=== PATIENT | female | born 1980 | race African-American/Black ===

== ENCOUNTER 2019-09-11 06:10 | Inpatient (IN) | payer BC, OTHER ==
[2019-09-11] MEDS ORDERED: ELECTROLYTE-148 SOLN 1,000 ML IV SCH ×2 (07:30)
[2019-09-11] MEDS ORDERED: CITRIC ACID/SODIUM CITRATE 30 ML UNIT-DOSE CUP PO ONE (07:30)
--- NOTE | 2019-09-11 07:43 | HP ---
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: No: Alzheimer's, CVA, Dementia, Migraine, Multiple Sclerosis, Peripheral Neuropathy, Parkinson's, Seizure, Syncope, TIA, Vertigo, Other Cardiovascular: No: AFIB, Aneurysm, Aortic Insufficiency, Aortic Stenosis, CAD, CHF, Deep Vein Thrombosis, HTN, Hyperlipdemia, NM, Mitral Insufficiency, Mitral Stenosis, Murmur, Pulmonary Hypertension, Other Pulmonary: No: Asthma, Bronchitis, Cancer, COPD, O2 Dependent, Pneumonia, Previously Intubated, Pulmonary Embolus, Pulmonary Fibrosis, Sleep Apnea, Other Gastrointestinal: No: Ascites, Cancer, Constipation, Crohn's Disease, Diverticulitis, Diverticulosis, Esophageal Varices, Gastritis, GERD, GI Bleed, Hemorrhoids, Hiatal Hernia, Inflamatory Bowel Disease, Irritable Bowel Disease, Pancreatitis, Peptic Ulcer Disease, Ulcerative Colitis, Other Hepatobiliary: No: Cirrhosis, Cholelithiasis, Cholecystitis, Choledocholithiasis , Hepatitis A, Hepatitis B, Hepatitis C, Other Renal/: No: Renal Failure, Renal Inusuff, BPH, Cancer, Hematuria, Hemodialysis , Neurogenic Bladder, Renal Calculi, UTI, Other Reproductive: No: Ectopic , Endometriosis, Fibroids, PID, Polycystic Ovary Syndrome, Postmenopausal, Other ...Para: 2 ...Term: 2 ... Weeks Gestation by Dates: 38 Heme/Onc: No: Anemia, B12 Deficiency, Bleeding Disorder, Cancer, Current Chemotherapy, Current Radiation Therapy, Hemochromatosis, Hypercoaguable State, Myeloproliferative Synd, Sickle Cell Disease, Sickle Cell Trait, Thrombocytopenia, Other Infectious Disease: No: AIDS, C-Diff, Herpes Zoster, HIV, MRSA, STD's, Tuberculosis, VREF, Other Psych: No: Addictions, Anxiety, Bipolar, Depression, Panic, Psychosis, Schizophrenia, Other Musculoskeletal: No: Bursitis, Chronic low back pain, Hemiparesis, Hemiplegia, Osteoarthritis, Paraplegia, Other Rheumatology: No: Fibromyalgia, Gout, Lupus, Rheumatoid Arthritis, Sarcoidosis, Vasculitis, Other ENT: No: Allergic Rhinitis, Sinusitis, Other Endocrine: No: [place]'s Disease, Evi's Disease, Diabetes Insipidus, Diabetes Mellitus, Hyperparathyroidism, Hyperthyroidism, Hypothyroidism, Osteopenia, SIADH, Other Dermatology: No: Basal Cell, Cellulitis, Eczema, Melanoma, Psoriasis, Squamous Cell, Other - Past Surgical History Past Surgical History: No: None, AAA Repair, AICD, Amputation, Appendectomy, Arthrosocopy, AV Fistula/Graft, Bariatric Surgery, Breast Biopsy, Bypass, CABG, Carotid Endarterectomy, Cataract Removal, Cholecystectomy, Colectomy, Colonoscopy, Colostomy, Craniotomy, , Cystectomy, Hernia Repair, Hysterectomy, Ileal Conduit, Ileosotomy, Joint Replacement, Kidney Transplant, Laminectomy, Liver Transplant, Mastectomy, Nephrectomy, Oopherectomy, Orchiectomy, Permanent Pacemaker, Prostatectomy, Splenectomy, Stent, Thoracotomy , TURP, Tonsillectomy, Tubal Ligation, Upper Endoscopy, Valve Replacement, Vasectomy, Vein Stripping/Ligation Hx Myomectomy: No Hx Transabdominal Cerclage: No - Advance Directives Advance Directives: Yes: Living Will - Smoking History Smoking history: Never smoked Have you smoked in the past 12 months: No - Alcohol/Substance Use Hx Alcohol Use: No History of Substance Use: reports: None - Social History Usual Living Arrangement: Yes: With Spouse Do you think of yourself as: Straight/Heterosexual ADL: Independent History of Recent Travel: No Home Medications - Allergies Allergies/Adverse Reactions: Allergies Allergy/AdvReac Type Severity Reaction Status Date / Time No Known Allergies Allergy Verified 09/11/19 07:28 - Home Medications Home Medications: Ambulatory Orders Ferrous Sulfate 1 tab PO DAILY 09/11/19 Tablet 1 tab PO DAILY 09/11/19 Family Medical History Family History: Denies Review of Systems - Review of Systems Constitutional: reports: No Symptoms Eyes: reports: No Symptoms HENT: reports: No Symptoms Neck: reports: No Symptoms Cardiovascular: reports: No Symptoms Respiratory: reports: No Symptoms Gastrointestinal: reports: No Symptoms Genitourinary: reports: No Symptoms Breasts: reports: No Symptoms Reported Musculoskeletal: reports: No Symptoms Integumentary: reports: No Symptoms Neurological: reports: No Symptoms Endocrine: reports: No Symptoms Hematology/Lymphatic: reports: No Symptoms Psychiatric: reports: No Symptoms 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 - Maternity Constitutional: Yes: Well Nourished, No Distress, Calm Eyes: Yes: WNL, Conjunctiva Clear, EOM Intact HENT: Yes: WNL, Atraumatic, Normocephalic Neck: Yes: WNL, Supple, Trachea Midline Cardiovascular: Yes: WNL, Regular Rate and Rhythm Lungs: Clear to auscultation Breast(s): Yes: WNL - Abdominal Exam/OB Fundal Height: 40 Number of Fetuses: Single Presentation: Vertex Contractions: Yes Regularity: Irregular Intensity: Mild Monitor Mode: External Heart Rate Location: [facility] Category: I Accelerations: Uniform Decelerations: None - Vaginal Exam/OB Vaginal Bleediing: No Speculum Exam: No Dilatation (cm): 1 Effacement (%): 20 Amniotic Membrane Status: Intact Meconium: Light Presentation: Vertex/Position Station: -3 - 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 Musculoskeletal: Yes: WNL Extremities: Yes: WNL Edema: Yes Edema: LUE: 1+, RUE: 1+, LLE: 1+, RLE: 1+ Integumentary: Yes: WNL Deep Tendon Reflex Grade: Normal +2 ...Motor Strength: WNL Psychiatric: Yes: WNL, Alert, Oriented Hemorrhage Risk Assessment - Risk Factors Medium Risk Factors: Yes: Prior , uterine surgery,or multiple laparotomies Risk Score: 1 Risk Level: Medium Risk Assessment/Plan for c s , btl
[2019-09-11 07:50] VITALS: BMI 41.2
[2019-09-11] MEDS ORDERED: OXYTOCIN 20 UNITS in 0.9% NS 40 UNIT/2,000 ML INFUS.BAG IV ONE (07:50)
[2019-09-11] MEDS ORDERED: ceFAZolin SODIUM 1 GM VIAL ONE (07:53)
[2019-09-11] MEDS ORDERED: PHENYLEPHRINE HCL 10 MG/1 ML SINGLE DOSE VIAL ONE (07:53)
[2019-09-11] MEDS ORDERED: morphine SULFATE/PF 0.5 MG/ML (2cc Syringe - QUVA) ONE (07:54)
[2019-09-11] MEDS ORDERED: OXYTOCIN 10 UNITS/ML VIAL ONE (08:52)
[2019-09-11] MEDS ORDERED: DEXAMETHASONE SOD PHOSPHATE 4 MG/1 ML VIAL ONE (08:52)
[2019-09-11] MEDS ORDERED: ONDANSETRON 4 MG/2 ML VIAL IVPUSH PRN (09:40)
[2019-09-11] MEDS ORDERED: ACETAMINOPHEN 1000 MG/100 ML VIAL (NON FORMULARY) IVPB PRN (09:41)
[2019-09-11] MEDS ORDERED: IBUPROFEN 800 MG/8 ML IJ IVPB PRN ×2 (09:41→11:02)
[2019-09-11] MEDS ORDERED: METHYLERGONOVINE MALEATE 0.2 MG/1 ML AMP IM PRN (11:02)
[2019-09-11] MEDS ORDERED: oxyCODONE HCL 5 MG TABLET PO PRN (11:02)
--- NOTE | 2019-09-11 11:12 | OP ---
Operative Note - Note: Operative Date: 09/11/19 Pre-Operative Diagnosis: repeat c s , btl Operation: repeat lt c s , btl Findings: no adhesion Post-Operative Diagnosis: Same as Pre-op Surgeon: Yonas Rodriguez Radial Drill Press Operator: Shmuel Richards Anesthesiologist/TEA TREE FARM WORKER: Naima Benton Anesthesia: Spinal Estimated Blood Loss (mls): 400 (no complications ) Operative Report Dictated: Yes
[2019-09-11] MEDS ORDERED: OXYTOCIN 20 UNITS in 0.9% NS 20 UNIT/1,000 ML INFUS.BAG IV SCH (11:15)
[2019-09-11] MEDS ORDERED: SENNOSIDES/DOCUSATE COMBO (SENNA PLUS) TABLET (UD) PO PRN (22:00)
--- NOTE | 2019-09-12 08:27 | PN ---
Progress Note (short form) - Note Progress Note: Anesthesia POD#1 S/P Repeat under spinal and Duramorph VSS,no N/V,pain is under control,legs fully recovered. No complications to anesthesia seen. Naima Benton MD.
[2019-09-12 09:29] LABS: BASO % 0.3 % (0-2.0); EOS % 0.4 % (0-4.5); HEMATOCRIT 29.9 % (32.4-45.2); LYMPH % 14.9 % (8-40); MCH 29.3 pg (25.7-33.7); MCHC 33.3 g/dl (32.0-36.0); MEAN CELL VOLUME 88.1 fl (80-96); MEAN PLT VOLUME 9.6 fl (7.5-11.1); MONO % 6.3 % (3.8-10.2); NEUT % 78.1 % (42.8-82.8); PLATELET COUNT 307 K/MM3 (134-434); RDW 13.5 % (11.6-15.6); WHITE BLOOD COUNT 15.3 K/mm3 (4.0-10.0)
[2019-09-12] MEDS: ENOXAPARIN NA (PORCINE) 40 MG/0.4 ML DISP.SYRIN SQ SCH (10:14)
[2019-09-12] MEDS ORDERED: BISACODYL 10 MG SUPP.RECT RC PRN (11:02)
--- NOTE | 2019-09-12 14:55 | PN ---
Post Progress Note Post Day: 1 Type of Delivery: Repeat C/S Vital Signs: Vital Signs Temperature 97.5 F L 09/12/19 14:31 Pulse Rate 68 09/12/19 14:31 Respiratory Rate 22 H 09/12/19 14:31 Blood Pressure 117/57 L 09/12/19 14:31 O2 Sat by Pulse Oximetry (%) 97 09/11/19 10:41 Breast Exam: Yes: Soft Uterus: Yes: Fundus Firm Incision: Yes: Dressing dry and intact, Sutures intact Abdomen/GI: Yes: Abdomen soft, Passing flatus, Tolerating PO Lochia: Yes: Serosa Lochia, amount: Small Extremities: Yes: Calves non-tender Perineum: Yes: Intact Activity: Ambulating - Labs Labs: CBC WBC 15.3 K/mm3 (4.0-10.0) H 09/12/19 08:25 RBC 3.40 M/mm3 (3.60-5.2) L 09/12/19 08:25 Hgb 10.0 GM/dL (10.7-15.3) L 09/12/19 08:25 Hct 29.9 % (32.4-45.2) L 09/12/19 08:25 MCV 88.1 fl (80-96) 09/12/19 08:25 MCH 29.3 pg (25.7-33.7) 09/12/19 08:25 MCHC 33.3 g/dl (32.0-36.0) 09/12/19 08:25 RDW 13.5 % (11.6-15.6) 09/12/19 08:25 Plt Count 307 K/MM3 (134-434) 09/12/19 08:25 MPV 9.6 fl (7.5-11.1) 09/12/19 08:25 Absolute Neuts (auto) 11.9 K/mm3 (1.5-8.0) H 09/12/19 08:25 Neutrophils % 78.1 % (42.8-82.8) 09/12/19 08:25 Lymphocytes % 14.9 % (8-40) D 09/12/19 08:25 Monocytes % 6.3 % (3.8-10.2) 09/12/19 08:25 Eosinophils % 0.4 % (0-4.5) D 09/12/19 08:25 Basophils % 0.3 % (0-2.0) 09/12/19 08:25 Nucleated RBC % 0 % (0-0) 09/12/19 08:25 Assessment/Plan oob as much as possible
[2019-09-12] MEDS: oxyCODONE HCL 5 MG TABLET PO PRN (17:08)
[2019-09-12] MEDS: ACETAMINOPHEN 325 MG TABLET (FP) PO PRN (17:10)
[2019-09-12] MEDS: SIMETHICONE 80 MG TAB.CHEW (FP) PO PRN (17:11)
--- NOTE | 2019-09-12 18:58 | OP ---
DATE OF OPERATION: 09/11/2019 PREOPERATIVE DIAGNOSIS: Repeat low transverse section and bilateral tubal ligation. POSTOPERATIVE DIAGNOSIS: Repeat low transverse section and bilateral tubal ligation. PROCEDURE: Repeat low transverse section and bilateral tubal ligation. SURGEON: Yonas Rodriguez MD ELECTROLYSIS INVESTIGATOR: NNAMDI Hannon, because no other executive assistant to general counsel doctors were available. ANESTHESIOLOGIST: Naima Benton MD ANESTHESIA: Spinal. BLOOD LOSS: About 400 mL. SPECIMEN: Placenta to Pathology. INDICATIONS: This is a 38-year-old female patient, previous 2 low transverse sections. All of the risks and benefits, alternatives were explained to the patient including future , ectopic, nonreversible, and all other alternatives were explained. The patient understood. The patient understood there is a 99.9% effective rate. Risks of future ectopic were also explained. Patient declined all other methods of family planning and requested bilateral tubal ligation. At this time, the patient was in mild labor with previous 2 low transverse sections, so was taken to the OR for repeat low transverse section; however, there was no executive assistant to general counsel available, so NNAMDI Hannon, was called in for repeat low transverse section. DESCRIPTION OF PROCEDURE: Patient was placed on the operating table in the supine position. After the spinal anesthesia was obtained, the patient's abdomen and pelvis was prepped and draped in the usual sterile manner. A Pfannenstiel incision was made through the skin and subcutaneous tissue until the fascia. The fascia was nicked in the midline and the fascial incision was extended bilaterally. Intraperitoneal cavity was entered. Bladder flap was not created. Low transverse segment of uterus was entered. Baby was delivered from LOP position. The baby was handed over to the refiner operator after umbilical cord was doubly clamped and cut. Cord blood gas was obtained. Placenta was removed. Uterus was closed in a single layer, first with interlocking Vicryl sutures with good hemostasis. Both ovaries and fallopian tubes and uterus were within normal limits except for polycystic ovary to both ovaries. Both isthmus of fallopian tubes were grasped with [place] and doubly transected and suture ligated. Both ends were coagulated with Bovie. Good hemostasis. No complications. Patient tolerated the procedure well. Blood loss was about 400 mL. Draining clear urine. Peritoneum was closed. Fascia was closed. Skin was closed. No complications besides the patient's BMI of 41.2. There was a lot of pedunculated abdominal muscle and fatty tissue, which was less tough during the surgery as it was a little bit more difficult getting into the intraabdominal cavity. Other than that, no complications. Patient tolerated the procedure well. Draining clear urine and transferred to the recovery room in stable condition. MD JUAN AMARO/[id number]
[2019-09-13] MEDS: oxyCODONE HCL 5 MG TABLET PO PRN ×3 (01:00→21:07)
[2019-09-13] MEDS: ACETAMINOPHEN 325 MG TABLET (FP) PO PRN ×3 (01:00→14:22)
[2019-09-13] MEDS: SIMETHICONE 80 MG TAB.CHEW (FP) PO PRN ×3 (07:57→21:08)
[2019-09-13] MEDS: ENOXAPARIN NA (PORCINE) 40 MG/0.4 ML DISP.SYRIN SQ SCH (10:11)
[2019-09-13] MEDS: IBUPROFEN 600 MG TABLET (FP) PO PRN ×2 (14:21→21:07)
--- NOTE | 2019-09-13 17:33 | PN ---
Post Progress Note Post Day: 2 Type of Delivery: Repeat C/S Vital Signs: Vital Signs Temperature 97.5 F L 09/13/19 09:00 Pulse Rate 67 09/13/19 09:00 Respiratory Rate 20 09/13/19 09:00 Blood Pressure 123/55 L 09/13/19 09:00 O2 Sat by Pulse Oximetry (%) 97 09/11/19 10:41 Breast Exam: Yes: Soft Uterus: Yes: Fundus Firm, Fundus below umbilicus Incision: Yes: Dressing dry and intact, Sutures intact Abdomen/GI: Yes: Abdomen soft, Passing flatus, Tolerating PO Lochia: Yes: Serosa Lochia, amount: Small Extremities: Yes: Calves non-tender Perineum: Yes: Intact Activity: Ambulating (doing well, will d c pt home for tomorrow ) - Labs Labs: CBC WBC 15.3 K/mm3 (4.0-10.0) H 09/12/19 08:25 RBC 3.40 M/mm3 (3.60-5.2) L 09/12/19 08:25 Hgb 10.0 GM/dL (10.7-15.3) L 09/12/19 08:25 Hct 29.9 % (32.4-45.2) L 09/12/19 08:25 MCV 88.1 fl (80-96) 09/12/19 08:25 MCH 29.3 pg (25.7-33.7) 09/12/19 08:25 MCHC 33.3 g/dl (32.0-36.0) 09/12/19 08:25 RDW 13.5 % (11.6-15.6) 09/12/19 08:25 Plt Count 307 K/MM3 (134-434) 09/12/19 08:25 MPV 9.6 fl (7.5-11.1) 09/12/19 08:25 Absolute Neuts (auto) 11.9 K/mm3 (1.5-8.0) H 09/12/19 08:25 Neutrophils % 78.1 % (42.8-82.8) 09/12/19 08:25 Lymphocytes % 14.9 % (8-40) D 09/12/19 08:25 Monocytes % 6.3 % (3.8-10.2) 09/12/19 08:25 Eosinophils % 0.4 % (0-4.5) D 09/12/19 08:25 Basophils % 0.3 % (0-2.0) 09/12/19 08:25 Nucleated RBC % 0 % (0-0) 09/12/19 08:25
--- NOTE | 2019-09-13 17:39 | DS ---
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-SUPER[employer] Vital Signs: Vital Signs Temperature 97.5 F L 09/13/19 09:00 Pulse Rate 67 09/13/19 09:00 Respiratory Rate 20 09/13/19 09:00 Blood Pressure 123/55 L 09/13/19 09:00 O2 Sat by Pulse Oximetry (%) 97 09/11/19 10:41 Constitutional: Yes: Well Nourished, No Distress, Calm Eyes: Yes: WNL, Conjunctiva Clear, EOM Intact HENT: Yes: WNL, Atraumatic, Normocephalic Neck: Yes: WNL, Supple, Trachea Midline Cardiovascular: Yes: WNL, Regular Rate and Rhythm Respiratory: Yes: WNL, Regular, CTA Bilaterally Gastrointestinal: Yes: WNL, Normal Bowel Sounds, Soft ...Rectal Exam: Yes: WNL Renal/: Yes: WNL Pelvis: Yes: WNL External Genitalia: Yes: Normal Internal Exam Deferred: No Vaginal Exam: Yes: Normal Cervix: Yes: Normal Uterus: Yes: Normal ....Post : Yes: Uterus firm, Uterus non-tender Breast(s): Yes: WNL Musculoskeletal: Yes: WNL Extremities: Yes: WNL Edema: Yes Edema: LUE: 1+, RUE: 1+, LLE: 1+, RLE: 1+ Integumentary: Yes: WNL Wound/Incision: Yes: Clean/Dry, Well Approximated Neurological: Yes: WNL, Alert, Oriented ...Motor Strength: WNL Psychiatric: Yes: WNL, Alert, Oriented Labs: CBC, BMP 09/12/19 08:25 Delivery - Delivery Section: Repeat Type of Anesthesia: Spinal EBL (cc): 400 Delivery, Single - Stages of Labor Date of Delivery: 09/11/19 Time of Delivery: 08:57 Time Placenta Delivered: 08:59 - Condition of Refrigeration Lead/Retail Manager Present: Yes Name: Caro Elias Gender: Male Weight: 3.289 kg Total Hours ROM (Hrs/Mins): 4 minutes - 1 Minute Total Score: 9 5 Minutes Total Score: 9 - [place] Feeding Plan Initial Plan: Exclusive throughout hospitalization Discharge Summary Problems reviewed: Yes Reason For Visit: Procedures: Principal: repeat c s btl, Other Procedures: btl Hospital Course: un eventful Health Concerns: none Plan of Treatment: oob as soon as possible Goals: return to work in 8 weeks Condition: Good - Instructions Diet, Activity, Other Instructions: regular , Physical activity Resume your normal everyday activity as tolerated no heavy lifting or exercise until seen by your surgeon. You may walk unlimited zabrina of and climb stairs. You may resume driving the car when you feel safe and comfortable behind the wheel. No sexual activity as instructed. Wound care If you have a bandage, leave it on, and keep dry for 48-72 hours. After that time discard the outer bandage. If they are tapes on the skin under the out of bandage leave them in place. They will peel off in the next 7 to 10 days. Do Not Peel them off. You may shower the day after surgery. If there are tapes present on the skin, you may shower over them. Diet There are no dietary restrictions. Eat healthy, high-fiber foods. Drink 6 to 8 glasses of liquid each day. This will assist in keeping your bowels are regular. Pain management You may take Tylenol or acetaminophen or Ibuprofen (for example, Motrin, Advil etc.) from my pain prescription medication is ordered should be taken as prescribed for moderate to severe pain. Call MD for any of the following: Severe pain not relieved by medication Fever of 101 or higher Excessive bleeding or drainage on dressing Inability to urinate Disposition: HOME - Home Medications Comprehensive Discharge Medication List: Ambulatory Orders Ferrous Sulfate 1 tab PO DAILY 09/11/19 Tablet 1 tab PO DAILY 09/11/19 Physical activity Resume your normal everyday activity as tolerated no heavy lifting or exercise until seen by your surgeon. You may walk unlimited zabrina of and climb stairs. You may resume driving the car when you feel safe and comfortable behind the wheel. No sexual activity as instructed. Wound care If you have a bandage, leave it on, and keep dry for 48-72 hours. After that time discard the outer bandage. If they are tapes on the skin under the out of bandage leave them in place. They will peel off in the next 7 to 10 days. Do Not Peel them off. You may shower the day after surgery. If there are tapes present on the skin, you may shower over them. Diet There are no dietary restrictions. Eat healthy, high-fiber foods. Drink 6 to 8 glasses of liquid each day. This will assist in keeping your bowels are regular. Pain management You may take Tylenol or acetaminophen or Ibuprofen (for example, Motrin, Advil etc.) from my pain prescription medication is ordered should be taken as prescribed for moderate to severe pain. Call MD for any of the following: Severe pain not relieved by medication Fever of 101 or higher Excessive bleeding or drainage on dressing Inability to urinate Prescription Drug Monitoring Program (I-STOP) results: I-STOP reviewed and no issues identified
[2019-09-14 07:49] LABS: BASO % 0.7 % (0-2.0); HEMATOCRIT 29.4 % (32.4-45.2); HEMOGLOBIN 9.6 GM/dL (10.7-15.3); LYMPH % 22.8 % (8-40); MCH 29.3 pg (25.7-33.7); MCHC 32.7 g/dl (32.0-36.0); MEAN CELL VOLUME 89.5 fl (80-96); MEAN PLT VOLUME 9.9 fl (7.5-11.1); MONO % 6.6 % (3.8-10.2); NEUT % 64.9 % (42.8-82.8); PLATELET COUNT 281 K/MM3 (134-434); RBC 3.29 M/mm3 (3.60-5.2); RDW 13.4 % (11.6-15.6); WHITE BLOOD COUNT 8.8 K/mm3 (4.0-10.0)
[2019-09-14] MEDS: IBUPROFEN 600 MG TABLET (FP) PO PRN (08:49)
[2019-09-14] MEDS: SIMETHICONE 80 MG TAB.CHEW (FP) PO PRN (08:49)
[2019-09-14] MEDS: ACETAMINOPHEN 325 MG TABLET (FP) PO PRN (08:50)
--- NOTE | 2019-09-14 10:01 | PN ---
Post Progress Note Post Day: 3 Type of Delivery: Repeat C/S Vital Signs: Vital Signs Temperature 97.6 F 09/13/19 21:30 Pulse Rate 77 09/13/19 21:30 Respiratory Rate 20 09/13/19 21:30 Blood Pressure 115/62 09/13/19 21:30 O2 Sat by Pulse Oximetry (%) 97 09/11/19 10:41 Breast Exam: Yes: Soft Uterus: Yes: Fundus Firm, Fundus below umbilicus Incision: Yes: Sutures intact Abdomen/GI: Yes: Abdomen soft, Passing flatus, Tolerating PO Lochia: Yes: Serosa Lochia, amount: Small Extremities: Yes: Calves non-tender Perineum: Yes: Intact Activity: Ambulating (dc pt home today ) - Labs Labs: CBC WBC 8.8 K/mm3 (4.0-10.0) 09/14/19 07:23 RBC 3.29 M/mm3 (3.60-5.2) L 09/14/19 07:23 Hgb 9.6 GM/dL (10.7-15.3) L 09/14/19 07:23 Hct 29.4 % (32.4-45.2) L 09/14/19 07:23 MCV 89.5 fl (80-96) 09/14/19 07:23 MCH 29.3 pg (25.7-33.7) 09/14/19 07:23 MCHC 32.7 g/dl (32.0-36.0) 09/14/19 07:23 RDW 13.4 % (11.6-15.6) 09/14/19 07:23 Plt Count 281 K/MM3 (134-434) 09/14/19 07:23 MPV 9.9 fl (7.5-11.1) 09/14/19 07:23 Absolute Neuts (auto) 5.7 K/mm3 (1.5-8.0) 09/14/19 07:23 Neutrophils % 64.9 % (42.8-82.8) 09/14/19 07:23 Lymphocytes % 22.8 % (8-40) D 09/14/19 07:23 Monocytes % 6.6 % (3.8-10.2) 09/14/19 07:23 Eosinophils % 5.0 % (0-4.5) H D 09/14/19 07:23 Basophils % 0.7 % (0-2.0) 09/14/19 07:23 Nucleated RBC % 0 % (0-0) 09/14/19 07:23
[2019-09-14] MEDS: ENOXAPARIN NA (PORCINE) 40 MG/0.4 ML DISP.SYRIN SQ SCH (10:35)
[2019-09-14 11:34] LABS: PLATELET ESTIMATE ADEQUATE
[2019-09-14 12:40] VITALS: BP 126/62; PULSE 73; TEMP 98.5
== END 2019-09-14 11:40 | disposition home or self-care (01) | DRG 785 ==
LOC: JLDR 06:10 → J3W 11:23
PROVIDERS: ADMIT Obstetrics & Gynecology; ATTEND Obstetrics & Gynecology
PROC: 10D00Z1 Extraction of Products of Conception, Low, Open Approach (ICD-10-PCS; principal; 2019-09-11)
PROC: 0UL70ZZ Occlusion of Bilateral Fallopian Tubes, Open Approach (ICD-10-PCS; 2019-09-11)
DX: O34.219 Maternal care for unspecified type scar from previous cesarean delivery (principal); Z3A.39 39 weeks gestation of pregnancy; Z37.0 Single live birth; Z30.2 Encounter for sterilization
CPT/HCPCS: 36415; 59409; 85025